=== PATIENT | male | born 1980 | race Caucasian/White ===

== ENCOUNTER 2016-10-13 19:15 | Inpatient (IN) | payer OTHER ==
[~2016-10-13] VITALS: Ht 180.3 cm; Wt 113.3 kg
[2016-10-13] MEDS ORDERED: NS 1,000 ML IV SCH (19:20)
[2016-10-13] MEDS ORDERED: D5W/0.45% SODIUM CHLORIDE 1,000 ML IV SCH (19:20)
[2016-10-13] MEDS ORDERED: VALS160T PO (22:56)
[2016-10-13] MEDS ORDERED: AMLO10TA2 PO (22:56)
[2016-10-13 23:09] LABS: BASO % 0.5 % (0.0-1.0); EOS # 0.2 K/mm3 (0.0-0.50); LARGE UNSTAINED CELL # 0.2 K/mm3 (0.0-0.4); LARGE UNSTAINED CELL % 1.8 % (0.0-4.0); LYMPH # 2.2 K/mm3 (1.5-4.5); LYMPH % 21.3 % (24.0-44.0); MEAN CORPUSCULAR HEMOGLOBIN 29.5 pg (27.0-33.0); MEAN CORPUSCULAR VOLUME 86.7 fl (80.0-96.0); MONO # 0.5 K/mm3 (0.0-0.8); NEUTROPHILS # 6.5 K/mm3 (1.8-7.7); NEUTROPHILS % 69.4 % (36.0-66.0); PLATELET COUNT, AUTOMATED 311 k/mm3 (150-450); RED CELL DISTRIBUTION WIDTH 13.8 % (11.5-14.5); WHITE BLOOD COUNT 9.3 K/mm3 (4.0-10.0)
[2016-10-13 23:30] LABS: OSMOLALITY SERUM 309 MOSM/KG (275-295)
[2016-10-13 23:35] LABS: ANION GAP 18 MEQ/L (8-16); BLOOD UREA NITROGEN 14 MG/DL (7-18); CALCIUM LEVEL 9.5 MG/DL (8.5-10.1); CARBON DIOXIDE LEVEL 17 MEQ/L (21-32); CHLORIDE LEVEL 99 MEQ/L (98-107); GLOMERULAR FILTRATION RATE 56.7 (>60); GLUCOSE, FASTING 319 MG/DL (70-105); POTASSIUM SERUM 3.4 MEQ/L (3.5-5.1); SODIUM LEVEL 134 MEQ/L (136-145)
[2016-10-13 23:36] VITALS: BP 130/72
[2016-10-13 23:37] LABS: ALBUMIN 3.7 GM/DL (3.2-5.2); ALBUMIN/GLOBULIN RATIO 0.97 (1.00-1.93); ALKALINE PHOSPHATASE 81 U/L (45-117); ALT/SGPT 81 U/L (12-78); ANION GAP 17 MEQ/L (8-16); AST/SGOT 31 U/L (15-37); BILIRUBIN,DIRECT 0.2 MG/DL (0.0-0.2); BILIRUBIN,TOTAL 0.7 MG/DL (0.2-1.0); BLOOD UREA NITROGEN 14 MG/DL (7-18); CALCIUM LEVEL 9.5 MG/DL (8.5-10.1); CARBON DIOXIDE LEVEL 17 MEQ/L (21-32); CHLORIDE LEVEL 99 MEQ/L (98-107); CREATININE FOR GFR 1.57 MG/DL (0.70-1.30); GLOMERULAR FILTRATION RATE 53.8 (>60); GLUCOSE, FASTING 317 MG/DL (70-105); MAGNESIUM LEVEL 1.9 MG/DL (1.8-2.4); PHOSPHORUS LEVEL 1.8 MG/DL (2.5-4.9); POTASSIUM SERUM 3.5 MEQ/L (3.5-5.1); SODIUM LEVEL 133 MEQ/L (136-145); TOTAL PROTEIN 7.5 GM/DL (6.4-8.2)
[2016-10-13] MEDS ORDERED: HumuLIN R (REGULAR) INSULIN (NovoLIN R) **100U/ML** PER UNIT IV STA (23:40)
[2016-10-13] MEDS ORDERED: POTASSIUM CHLORIDE 10 MEQ SR TABLET PO ONE (23:45)
[2016-10-14] VITALS (12 sets, daily range): BP systolic 95–149; BP diastolic 50–80
[2016-10-14] MEDS ORDERED: INSULIN IV RATE CHANGE DOCUMENTATION ML/HR XX SCH
--- NOTE | 2016-10-14 00:06 | ECGEPIP ---
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
[2016-10-14] MEDS ORDERED: INSULIN HUMAN REGULAR 100 UNITS in NS 99 ML IV SCH ×3 (00:15)
[2016-10-14 00:19] LABS: ABG BASE EXCESS -14.2 (-2.0-2.0); ABG HCO3 10.6 MEQ/L (22.0-26.0); ABG PARTIAL PRESSURE CO2 23.9 mmHg (35.0-45.0); ABG PARTIAL PRESSURE O2 97.2 mmHg (75.0-100.0); ABG STANDARD HCO3 13.9 MEQ/L (22.0-26.0); ABG TOTAL CO2 11.3 MEQ/L (22.0-29.0); ABG pH (ARTERIAL) 7.264 UNITS (7.350-7.450)
--- NOTE | 2016-10-14 00:27 | HPE ---
DATE OF ADMISSION: 10/13/2016 PRIMARY CARE PHYSICIAN: Previously was Millie Garnett currently Ross Kim. HOSPITALIST: Dr. 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 Millie Garnett per the patient with negative renal ultrasound, left femoral fracture secondary to trauma status post marco placement 1997, daily alcohol use with four beers a day, no history of alcohol abuse or addiction, presents as a transfer from [facility] per family request. Patient had been having a 1-2 week history of polyuria, decreased appetite, increased water intake, nausea, vomiting, loss of energy and fatigue, as well as weight loss from 275 pounds, currently at 249 pounds for the past 3 weeks. He also complains of constipation, diffuse abdominal pain with vomiting daily for the past week prompting him to present to the emergency room where he was found to have an A1c of over 9, as well as a glucose level of over 400. Patient was admitted to [facility], placed on intravenous (IV) insulin drip, normal saline. Per family request, patient is transferred to [facility] as prompted by his aunt who is an intensive care unit (ICU) nurse. Patient otherwise denies any fevers, chills, cough, shortness of breath, palpitations, dysuria, urgency, frequency. Hospitalist service was called for direct admission as transfer from [facility] per family's request for treatment of diabetic ketoacidosis. PAST MEDICAL HISTORY: 1. Hypertension at the age of 23. 2. Left femoral trauma at the age of 18 with left marco placement. PAST SURGICAL HISTORY: Age 18 left marco placement for femoral fracture from traumatic injury. SOCIAL HISTORY: Drinks four beers a day, has not had a drink in over 2 weeks. No cigarette use. Works at [employer]. FAMILY HISTORY: Mother alive and well with gallbladder biliary colic. Father with diabetes, alive and well age 59. REVIEW OF SYSTEMS: 12-point systems negative aside from positive findings on history of presenting illness (HPI). HOME MEDICATIONS: - valsartan/hydrochlorothiazide one tablet daily - Norvasc 10 mg daily PHYSICAL EXAMINATION: Vitals: 98.8 temp 100 hr 18 rr bp 130/72 99% O2 room air Generally, awake, alert, oriented times three. Anicteric sclerae. No jaundice. Pupils are equally round and reactive to light and accommodation. Extraocular muscles are intact. Normocephalic, atraumatic. Dry mucous membranes. No cervical lymphadenopathy, thyromegaly or jugular venous distention. Lungs are clear to auscultation. No wheezing, rales or rhonchi. Heart: S1, S2, sinus rhythm. No murmurs, rubs or gallops. Abdomen is obese, doughy, soft. Bilateral lower quadrant tenderness. No rebound, guading. Positive bowel sounds times four quadrants. Extremities: No cyanosis, clubbing or any pitting edema. Skin warm, dry, well perfused, pink in color. LABORATORY DATA: wbc 9.3 hgb 16.3 hct 48 plt 311 sodium 134 k 3.4 chloride 99 bicarb 17 bun 14 creatinine 1.5 glucose 319 ca 9.5 A1c 10.2 T.Bili 0.7 D. Bili 0.2 AST 31 ALT 81 Alk phos 81 Total protein 7.5 albumin 3.7 lipase 173 Beta hydroxy butyrate >46 IMAGING STUDIES: Chest x-ray, EKG are pending. ASSESSMENT AND PLAN: This is a 35-year-old male with history of hypertension since the age of 23, traumatic injury to the left femur with marco placement at the age of 18 or 19, presents to the emergency room with 2-week history of nausea, vomiting, decreased intake, fatigue, loss of energy, weight loss from 275 pounds to 249 pounds, polyuria with decrease in appetite, increase in water intake and abdominal discomfort, was admitted to [facility] for diabetic ketoacidosis and transferred to [facility] per family's request, specifically intensive care unit (ICU) nurse, aunt, who requested transfer to [facility]. Patient will be admitted as an inpatient for two midnights, assigned to Dr. Chaz Garces, hospitalist attending at 7 a.m. on 10/14/2016 for the following issues: 1. Diabetic ketoacidosis. Patient will be kept in the ICU, await basic metabolic panel (BMP) results and decide on insulin drip versus subcutaneous insulin with every 1 hour to 2 hour fingersticks for adjustments of his regimen. Check A1c. Check for signs of infection. No signs of cellulitis. Denies any dysuria, urgency, frequency. Obtain a chest x-ray and an EKG. Obtain liver function tests and complete blood count (CBC). Address insulin according to basic metabolic panel and anion gap results. Keep on a consistent carbohydrate diet. Intravenous fluids. Diabetic teaching and foaming machine operator consult in the morning. Patient will be placed on low-dose aspirin 81 mg daily, as well as referral to contract design agent as outpatient to check for baseline retinopathy. Primary care physician needs to examine the patient for monofilament testing to rule out peripheral neuropathy. 2. Chronic back pain. Obtain x-rays of the thoracic, lumbar spine once stabilized. As needed Percocet and morphine, heating pad, and bowel regimen. 3. Chronic constipation. Bowel regimen, check thyroid-stimulating hormone (TSH ) and calcium level. Encourage early ambulation. 4. Hypertension since the age of 23. Secondary hypertension workup has been done by his previous primary caregiver, Dr. Millie Garnett. Obtain records from Dr. Garnett's office. Continue on Norvasc and home medications for better blood pressure control. Monitor patient's creatinine if restarted back on angiotensin-converting enzyme (YANI) inhibitor. 5. Social alcohol use. Admits to drinking four beers a day, but has not had a drink in over 2 weeks. Monitor for withdrawal symptoms. 6. Deep venous thrombosis (DVT) prophylaxis with subcutaneous Lovenox. Patient will be assigned to Dr. Chaz Garces at 7 a.m. on 10/14/2016. [id number]
[2016-10-14] MEDS: INSULIN IV RATE CHANGE DOCUMENTATION ML/HR XX SCH ×4 (00:35→07:08)
[2016-10-14 01:42] LABS: CALCIUM LEVEL 9.2 MG/DL (8.5-10.1); CREATININE FOR GFR 1.53 MG/DL (0.70-1.30); GLOMERULAR FILTRATION RATE 55.4 (>60); POTASSIUM SERUM 2.8 MEQ/L (3.5-5.1)
[2016-10-14] MEDS ORDERED: MAG SULF 1GM/100ML (MAG RUN) 1 GM in APPROPRIATE DILUENT 1 EA IV ONE (02:30)
[2016-10-14] MEDS: POTASSIUM CHLORIDE 10 MEQ SR TABLET PO SCH ×2 (02:33→04:16)
[2016-10-14] MEDS: KCL 40MEQ in NS 1000ML 1,000 ML IV SCH ×2 (02:34→07:30)
[2016-10-14 03:54] LABS: CALCIUM LEVEL 8.7 MG/DL (8.5-10.1); CREATININE FOR GFR 1.52 MG/DL (0.70-1.30); GLOMERULAR FILTRATION RATE 55.8 (>60); POTASSIUM SERUM 3.7 MEQ/L (3.5-5.1)
[2016-10-14 05:32] LABS: BASO % 0.3 % (0.0-1.0); EOS # 0.1 K/mm3 (0.0-0.50); EOS % 1.3 % (0.0-3.0); LARGE UNSTAINED CELL # 0.2 K/mm3 (0.0-0.4); LARGE UNSTAINED CELL % 1.8 % (0.0-4.0); LYMPH # 1.5 K/mm3 (1.5-4.5); LYMPH % 17.5 % (24.0-44.0); MEAN CORPUSCULAR HEMOGLOBIN 29.8 pg (27.0-33.0); MEAN CORPUSCULAR HGB CONC 35.1 g/dl (32.0-36.5); MEAN CORPUSCULAR VOLUME 84.9 fl (80.0-96.0); MONO # 0.4 K/mm3 (0.0-0.8); MONO % 4.7 % (0.0-5.0); NEUTROPHILS # 6.5 K/mm3 (1.8-7.7); NEUTROPHILS % 74.4 % (36.0-66.0); PLATELET COUNT, AUTOMATED 298 k/mm3 (150-450); RED CELL DISTRIBUTION WIDTH 13.3 % (11.5-14.5); WHITE BLOOD COUNT 8.7 K/mm3 (4.0-10.0)
[2016-10-14 06:00] LABS: CALCIUM LEVEL 8.4 MG/DL (8.5-10.1); CREATININE FOR GFR 1.52 MG/DL (0.70-1.30); GLOMERULAR FILTRATION RATE 55.8 (>60); POTASSIUM SERUM 4.1 MEQ/L (3.5-5.1)
[2016-10-14] MEDS ORDERED: GLUCOSE 4 GM CHEW TABLET PO PRN (07:30)
[2016-10-14] MEDS ORDERED: GLUCAGON FOR INJ 1 MG VIAL (J1610) SC PRN (07:30)
[2016-10-14] MEDS ORDERED: DEXTROSE 50% 50 ML SYRINGE IV PRN (07:30)
[2016-10-14] MEDS: HumaLOG INSULIN (NovoLOG) PER UNIT SC SCH ×4 (07:30→20:29)
--- NOTE | 2016-10-14 07:38 | IPNPDOC ---
Subjective Date Seen The patient was seen on 10/14/16. Subjective Chief Complaint/HPI The patient is a 35-year-old male admitted with a reason for visit of DKA. General: Reports: Malaise, Denies: ROS Unobtainable, Chills, Night Sweats, Fatigue, Normal Appetite, Other Symptoms Constitutional: Reports: Malaise, Denies: Chills, Fever, Night Sweats, Weakness, Fatigue, Weight Loss, Lethargy , Other Eyes: Denies: Pain, Vision change, Conjunctivae inflammation, Eyelid inflammation, Redness, Other ENT: Denies: Head Aches, Ear Pain, Dysphagia, Sinus Congestion, Post Nasal Drip , Sore Throat, Epistaxis, Other Symptoms Skin: Denies: Rash, Lesions, Jaundice, Bruising, Itching, Dry, Breakdown, Nail Changes, Other Pulmonary: Denies: Dyspnea, Cough, Pleuritic Chest Pain, Other Symptoms Cardiovascular: Denies: Chest Pain, Palpitations, Orthopnea, Paroxysmal Noc. Dyspnea, Edema, Lt Headedness, Other Symptoms Gastrointestinal: Denies: Nausea, Vomiting, Abdominal Pain, Diarrhea, Constipation, Melena, Hematochezia, Other Symptoms Genitourinary: Denies: Dysuria, Frequency, Incontinence, Hematuria, Retention, Other Symptoms Objective Physical Examination General Exam: Positive: Alert, Cooperative, No Acute Distress Eye Exam: Positive: PERRLA, Conjunctiva & lids normal, EOMI, Negative: Sclera icteric ENT Exam: Positive: Atraumatic Neck Exam: Positive: Supple Chest Exam: Positive: Clear to auscultation, Normal air movement Heart Exam: Positive: Rate Normal, Regular Rhythm Telemetry: Positive: No significant arrhythmia, Sinus Abdomen Exam: Positive: Normal bowel sounds, Soft, Other (obese) Psych Exam: Positive: Oriented x 3 Assessment /Plan Problems (1) DKA (diabetic ketoacidoses) Status: Resolved Discussed With: Patient Problem Specific Plan: Repeat Labs Problem Text: A1c 10.2. transition to sliding scale, dc insulin drip, start diet diabetic teaching continue iv fluids anticipate discharge with metformin vs insulin therapy, lifestyle modifications (2) HTN (hypertension) Status: Chronic Discussed With: Patient Problem Specific Plan: Monitor Clinically Problem Text: continue norvasc, start acei (3) Dyslipidemia Status: Acute Discussed With: Patient Problem Text: newly diagnosed, start statin therapy Plan/VTE VTE Prophylaxis Ordered?: Yes Plan IVF: Continue Diet: Continue Current Diagnostics: Repeat Labs in AM Anticipated Discharge: Home VS, I&O, 24H, [facility] Vital Signs/I&O Vital Signs Date Time Temp Pulse Resp B/P (MAP) Pulse Ox O2 Delivery O2 Flow Rate FiO2 10/14/16 05:25 86 113/65 (81) 98 10/14/16 04:00 97.8 20 I&O- Last 24 Hours up to 6 AM 10/14/16 05:59 Intake Total 640 ml Output Total 500 ml Balance 140 ml Laboratory Data 24H LABS Laboratory Tests 2 10/13/16 22:54: White Blood Count 9.3, Red Blood Count 5.54, Hemoglobin 16.3, Hematocrit 48.0, Mean Corpuscular Volume 86.7, Mean Corpuscular Hemoglobin 29.5, Mean Corpuscular Hemoglobin Concent 34.0, Red Cell Distribution Width 13.8, Platelet Count 311, Neutrophils (%) (Auto) 69.4H, Lymphocytes (%) (Auto) 21.3L, Monocytes (%) (Auto) 5.0, Eosinophils (%) (Auto) 2.0, Basophils (%) (Auto) 0.5, Neutrophils # (Auto) 6.5, Lymphocytes # (Auto) 2.2, Monocytes # (Auto) 0.5, Eosinophils # (Auto) 0.2, Basophils # (Auto) 0.0, Large Unclassified Cells % 1.8 , Large Unclassified Cells # 0.2, Anion Gap 18H, Glomerular Filtration Rate 56.7L, Osmolality 309H, Blood Urea Nitrogen 14, Creatinine 1.50H, Sodium Level 134L, Potassium Level 3.4L, Chloride Level 99, Carbon Dioxide Level 17L, Calcium Level 9.5, Total Creatine Kinase 41, Phosphorus Level 1.8L, Aspartate Amino Transf (AST/SGOT) 31, Alanine Aminotransferase (ALT/SGPT) 81H, Alkaline Phosphatase 81, Total Bilirubin 0.7, Direct Bilirubin 0.2, Total Protein 7.5, Albumin 3.7, Magnesium Level 1.9, Creatine Kinase MB 1.5, Creatine Kinase MB Relative Index 3.65, Troponin I < 0.02, Albumin/Globulin Ratio 0.97L, Lipase 173 , B-Hydroxybutyrate > 46.00H 10/13/16 22:55: Estimated Mean Plasma Glucose 246H, Hemoglobin A1c 10.2H 10/14/16 00:01: Blood Gas Bicarbonate Standard 13.9L, Arterial Blood pH 7.264L, Arterial Blood Partial Pressure CO2 23.9L, Arterial Blood Partial Pressure O2 97.2, Arterial Blood Total CO2 11.3L, Arterial Blood HCO3 10.6L, Arterial Blood Base Excess - 14.2L, Arterial Blood Oxygen Saturation 97.5 10/14/16 00:30: Bedside Glucose (Misc Panel) 332H 10/14/16 00:55: Urine Appearance CLEAR, Urine Color YELLOW, Urine pH 5.0, Urine Specific [place] 1.021, Urine Protein 1+H, Urine Glucose (UA) 3+H, Urine Ketones 2+H, Urine Urobilinogen 0.2, Urine Bilirubin NEGATIVE, Urine Leukocyte Esterase NEGATIVE, Urine Blood 1+H, Urine Nitrite NEGATIVE, Urine WBC (Auto) 1, Urine RBC (Auto) 1, Urine Hyaline Casts (Auto) 0, Urine Bacteria (Auto) NEGATIVE, Urine Squamous Epithelial Cells 0, Urine Mucus (Auto) SMALL, Urine Sperm (Auto) , Urine Creatinine 67.7, Urine Microalbumin 20.2, Urine Microalbumin/Creatinine Ratio 29.8 10/14/16 01:00: Bedside Glucose (Misc Panel) 314H 10/14/16 01:15: Anion Gap 17H, Glomerular Filtration Rate 55.4L, Blood Urea Nitrogen 13, Creatinine 1.53H, Sodium Level 134L, Potassium Level 2.8*L, Chloride Level 102, Carbon Dioxide Level 15L, Calcium Level 9.2 10/14/16 02:00: Bedside Glucose (Misc Panel) 292H 10/14/16 03:01: Bedside Glucose (Misc Panel) 279H 10/14/16 03:20: Anion Gap 15, Glomerular Filtration Rate 55.8L, Blood Urea Nitrogen 13, Creatinine 1.52H, Sodium Level 135L, Potassium Level 3.7#, Chloride Level 104, Carbon Dioxide Level 16L, Calcium Level 8.7 10/14/16 04:13: Bedside Glucose (Misc Panel) 286H 10/14/16 05:02: Bedside Glucose (Misc Panel) 327H 10/14/16 05:22: White Blood Count 8.7, Red Blood Count 5.10, Hemoglobin 15.2, Hematocrit 43.3, Mean Corpuscular Volume 84.9, Mean Corpuscular Hemoglobin 29.8, Mean Corpuscular Hemoglobin Concent 35.1, Red Cell Distribution Width 13.3, Platelet Count 298, Neutrophils (%) (Auto) 74.4H, Lymphocytes (%) (Auto) 17.5L, Monocytes (%) (Auto) 4.7, Eosinophils (%) (Auto) 1.3, Basophils (%) (Auto) 0.3, Neutrophils # (Auto) 6.5, Lymphocytes # (Auto) 1.5, Monocytes # (Auto) 0.4, Eosinophils # (Auto) 0.1, Basophils # (Auto) 0.0, Large Unclassified Cells % 1.8 , Large Unclassified Cells # 0.2, Anion Gap 14, Glomerular Filtration Rate 55.8L , Calcium Level 8.4L, Triglycerides Level 384H, LDL Cholesterol 212.2H, Total Cholesterol 326H, Non-HDL Cholesterol (LDL + VLDL) 289, Total HDL Cholesterol 37L, Cholesterol/HDL Ratio 8.810H 10/14/16 06:04: Bedside Glucose (Misc Panel) 287H 10/14/16 06:58: Bedside Glucose (Misc Panel) 289H CBC/BMP Laboratory Tests 10/13/16 22:54 Red Blood Count 5.54, Mean Corpuscular Volume 86.7, Mean Corpuscular Hemoglobin 29.5, Mean Corpuscular Hemoglobin Concent 34.0, Red Cell Distribution Width 13.8 , Neutrophils (%) (Auto) 69.4 H, Lymphocytes (%) (Auto) 21.3 L, Monocytes (%) ( Auto) 5.0, Eosinophils (%) (Auto) 2.0, Basophils (%) (Auto) 0.5, Neutrophils # ( Auto) 6.5, Lymphocytes # (Auto) 2.2, Monocytes # (Auto) 0.5, Eosinophils # (Auto ) 0.2, Basophils # (Auto) 0.0, Calcium Level 9.5, Total Creatine Kinase 41, Phosphorus Level 1.8 L, Aspartate Amino Transf (AST/SGOT) 31, Alanine Aminotransferase (ALT/SGPT) 81 H, Alkaline Phosphatase 81, Total Bilirubin 0.7, Direct Bilirubin 0.2, Total Protein 7.5, Albumin 3.7 10/14/16 01:15 Calcium Level 9.2 10/14/16 03:20 Calcium Level 8.7 10/14/16 05:22 Red Blood Count 5.10, Mean Corpuscular Volume 84.9, Mean Corpuscular Hemoglobin 29.8, Mean Corpuscular Hemoglobin Concent 35.1, Red Cell Distribution Width 13.3 , Neutrophils (%) (Auto) 74.4 H, Lymphocytes (%) (Auto) 17.5 L, Monocytes (%) ( Auto) 4.7, Eosinophils (%) (Auto) 1.3, Basophils (%) (Auto) 0.3, Neutrophils # ( Auto) 6.5, Lymphocytes # (Auto) 1.5, Monocytes # (Auto) 0.4, Eosinophils # (Auto ) 0.1, Basophils # (Auto) 0.0 Microbiology Microbiology 10/14/16 Urine Culture, Received Pending BASIA CISSE MD Oct 14, 2016 07:37
--- NOTE | 2016-10-14 07:44 | REP ---
Portable chest, 11:04 p.m., the patient sitting, single AP view: There are no comparisons. The lung wilson are clear. The cardiac size is normal. The gillian, mediastinum, and bony thorax are unremarkable. Impression: Negative portable chest. Signed by Jesus Fortune MD 10/14/2016 07:36 A
[2016-10-14 07:55] LABS: CALCIUM LEVEL 8.5 MG/DL (8.5-10.1); CREATININE FOR GFR 1.6 MG/DL (0.70-1.30); GLOMERULAR FILTRATION RATE 52.6 (>60); POTASSIUM SERUM 4.3 MEQ/L (3.5-5.1)
[2016-10-14] MEDS: ENOXAPARIN 40 MG/0.4 ML SYRINGE (J1650) SC SCH (08:16)
[2016-10-14] MEDS ORDERED: amLODIPine 10 MG TAB PO SCH (09:00)
[2016-10-14] MEDS: amLODIPine 5 MG TAB PO SCH (09:00)
[2016-10-14] MEDS ORDERED: VALSARTAN 80 MG TAB (DIOVAN) PO SCH (09:00)
[2016-10-14 10:16] LABS: ANION GAP 13 MEQ/L (8-16); BLOOD UREA NITROGEN 12 MG/DL (7-18); CALCIUM LEVEL 8.7 MG/DL (8.5-10.1); CARBON DIOXIDE LEVEL 17 MEQ/L (21-32); CHLORIDE LEVEL 109 MEQ/L (98-107); CREATININE FOR GFR 1.36 MG/DL (0.70-1.30); GLOMERULAR FILTRATION RATE > 60.0 (>60); GLUCOSE, FASTING 297 MG/DL (70-105); POTASSIUM SERUM 4.6 MEQ/L (3.5-5.1); SODIUM LEVEL 139 MEQ/L (136-145)
[2016-10-14 11:45] LABS: CALCIUM LEVEL 8.9 MG/DL (8.5-10.1); CREATININE FOR GFR 1.47 MG/DL (0.70-1.30); POTASSIUM SERUM 4.3 MEQ/L (3.5-5.1)
[2016-10-14] MEDS: NS 1,000 ML IV SCH ×2 (13:15→21:46)
[2016-10-14 14:00] LABS: ANION GAP 12 MEQ/L (8-16); BLOOD UREA NITROGEN 10 MG/DL (7-18); CALCIUM LEVEL 8.9 MG/DL (8.5-10.1); CARBON DIOXIDE LEVEL 19 MEQ/L (21-32); CHLORIDE LEVEL 107 MEQ/L (98-107); CREATININE FOR GFR 1.34 MG/DL (0.70-1.30); GLOMERULAR FILTRATION RATE > 60.0 (>60); GLUCOSE, FASTING 262 MG/DL (70-105); POTASSIUM SERUM 4.2 MEQ/L (3.5-5.1); SODIUM LEVEL 138 MEQ/L (136-145)
[2016-10-14 19:11] LABS: ANION GAP 10 MEQ/L (8-16); BLOOD UREA NITROGEN 9 MG/DL (7-18); CALCIUM LEVEL 8.7 MG/DL (8.5-10.1); CARBON DIOXIDE LEVEL 21 MEQ/L (21-32); CHLORIDE LEVEL 105 MEQ/L (98-107); CREATININE FOR GFR 1.27 MG/DL (0.70-1.30); GLOMERULAR FILTRATION RATE > 60.0 (>60); GLUCOSE, FASTING 299 MG/DL (70-105); POTASSIUM SERUM 3.8 MEQ/L (3.5-5.1); SODIUM LEVEL 136 MEQ/L (136-145)
[2016-10-14] MEDS ORDERED: LEVEMIR (INSULIN DETEMIR) 1 UNITS/0.01ML SC ONE (20:30)
[2016-10-14] MEDS: ATORVASTATIN 20 MG TAB PO SCH (20:34)
[2016-10-15 03:00] VITALS: BP 130/60
[2016-10-15 07:31] LABS: BASO % 0.5 % (0.0-1.0); EOS # 0.1 K/mm3 (0.0-0.50); EOS % 2.2 % (0.0-3.0); LARGE UNSTAINED CELL # 0.1 K/mm3 (0.0-0.4); LARGE UNSTAINED CELL % 1.8 % (0.0-4.0); LYMPH % 35.9 % (24.0-44.0); MEAN CORPUSCULAR HEMOGLOBIN 29.9 pg (27.0-33.0); MEAN CORPUSCULAR HGB CONC 34.3 g/dl (32.0-36.5); MONO # 0.3 K/mm3 (0.0-0.8); MONO % 6.1 % (0.0-5.0); NEUTROPHILS # 2.9 K/mm3 (1.8-7.7); NEUTROPHILS % 53.5 % (36.0-66.0); PLATELET COUNT, AUTOMATED 225 k/mm3 (150-450); RED CELL DISTRIBUTION WIDTH 13.5 % (11.5-14.5); WHITE BLOOD COUNT 5.3 K/mm3 (4.0-10.0)
[2016-10-15] MEDS: NS 1,000 ML IV SCH ×2 (07:49→17:24)
[2016-10-15 07:57] LABS: ANION GAP 13 MEQ/L (8-16); BLOOD UREA NITROGEN 7 MG/DL (7-18); CALCIUM LEVEL 8.6 MG/DL (8.5-10.1); CARBON DIOXIDE LEVEL 20 MEQ/L (21-32); CHLORIDE LEVEL 105 MEQ/L (98-107); GLOMERULAR FILTRATION RATE > 60.0 (>60); GLUCOSE, FASTING 265 MG/DL (70-105); POTASSIUM SERUM 3.6 MEQ/L (3.5-5.1); SODIUM LEVEL 138 MEQ/L (136-145)
[2016-10-15 08:00] VITALS: BP 135/74
[2016-10-15] MEDS: HumaLOG INSULIN (NovoLOG) PER UNIT SC SCH ×4 (08:04→21:59)
[2016-10-15] MEDS: ENOXAPARIN 40 MG/0.4 ML SYRINGE (J1650) SC SCH (08:05)
[2016-10-15] MEDS: VALSARTAN 80 MG TAB (DIOVAN) PO SCH (08:19)
[2016-10-15] MEDS: amLODIPine 5 MG TAB PO SCH (08:19)
[2016-10-15] MEDS ORDERED: LISINOPRIL 10 MG TAB PO SCH (09:00)
[2016-10-15 16:00] VITALS: BP 149/69
[2016-10-15] MEDS ORDERED: D-CA1KIT XX (17:57)
[2016-10-15] MEDS ORDERED: LEVE1INJ5 SC (17:57)
--- NOTE | 2016-10-15 17:57 | IPNPDOC ---
Text Note Date of Service The patient was seen on 10/15/16. NOTE Subjective: Patient is a 35 year old male with a PMHx of HTN who presented as a transfer from [facility] because of DKA. He was found to have polydipsia, polyuria and generalized weakness. He also noted abdominal pain associated with nausea and vomiting. Patient was admitted to ICU for an insulin drip and then was downgraded to medical surgical floor after he was transitioned to subcutaneous insulin. Patient was seen and examined at the bedside. Currently he denies any nausea or vomiting. He still notes some mild abdominal pain, but has improved. Objective: Vitals (See below) General: Lying in bed, no acute distress, comfortable, AAOx3 HEENT: NC, AT CVS: RRR, +S1S2 Lungs: Fair air entry b/l, -w/r/r Abdomen: Soft, ND, tenderness at epigastrium, +BSx4 Extremities: - Edema, - Calf tenderness Assessment and plan: 1. New Onset DM2; s/p DKA - Clinically has had improvement in his symptoms - Physical currently unrevealing - no history of DM in past; strong family history - A1c of 10.2% - c/w diabetic teaching and insulin teaching - c/w IV fluid hydration - Will c/w ISS, will add Levemir 20 units QHS for better glycemic control - Diet has been fully advanced 2. s/p JENNY - likely 2/2 pre-renal etiology - Cr improving - c/w IV fluid hydration 3. HTN - BP well controlled - c/w Valsartan 4. DLP - c/w Atorvastatin 5. GI prophylaxis - will start Protonix 6. DVT prophylaxis - c/w Lovenox Disposition: - May require insulin upon discharge - Will send glucometer to pharmacy [facility] PATEL, I+O VSEdith, I+O Laboratory Tests 10/14/16 18:46 Calcium Level 8.7 10/15/16 07:20 Calcium Level 8.6, Red Blood Count 4.56, Mean Corpuscular Volume 87.0, Mean Corpuscular Hemoglobin 29.9, Mean Corpuscular Hemoglobin Concent 34.3, Red Cell Distribution Width 13.5, Neutrophils (%) (Auto) 53.5, Lymphocytes (%) (Auto) 35.9, Monocytes (%) (Auto) 6.1 H, Eosinophils (%) (Auto) 2.2, Basophils (%) ( Auto) 0.5, Neutrophils # (Auto) 2.9, Lymphocytes # (Auto) 2.0, Monocytes # (Auto ) 0.3, Eosinophils # (Auto) 0.1, Basophils # (Auto) 0.0 Vital Signs Date Time Temp Pulse Resp B/P (MAP) Pulse Ox O2 Delivery O2 Flow Rate FiO2 10/15/16 16:00 97.8 90 18 149/69 (95) 95 Room Air I&O- Last 24 Hours up to 6 AM 10/15/16 06:00 Intake Total 2675 ml Output Total 1350 ml Balance 1325 ml STEPHANIE CRAFT MD Oct 15, 2016 17:57
[2016-10-15] MEDS: PANTOPRAZOLE 40MG TAB (PROTONIX) PO SCH (18:53)
[2016-10-15 20:00] VITALS: BP 128/70
[2016-10-15] MEDS ORDERED: LEVEMIR (INSULIN DETEMIR) 1 UNITS/0.01ML SC SCH (21:00)
[2016-10-15] MEDS: ATORVASTATIN 20 MG TAB PO SCH (21:59)
[2016-10-16] VITALS: BP 127/62
[2016-10-16] MEDS: NS 1,000 ML IV SCH (05:15)
[2016-10-16 07:12] LABS: BASO % 0.6 % (0.0-1.0); EOS # 0.1 K/mm3 (0.0-0.50); EOS % 2.5 % (0.0-3.0); LARGE UNSTAINED CELL # 0.1 K/mm3 (0.0-0.4); LYMPH # 2.2 K/mm3 (1.5-4.5); LYMPH % 41.1 % (24.0-44.0); MEAN CORPUSCULAR HEMOGLOBIN 29.9 pg (27.0-33.0); MEAN CORPUSCULAR HGB CONC 35.2 g/dl (32.0-36.5); MEAN CORPUSCULAR VOLUME 84.8 fl (80.0-96.0); MONO # 0.2 K/mm3 (0.0-0.8); MONO % 4.6 % (0.0-5.0); NEUTROPHILS # 2.5 K/mm3 (1.8-7.7); NEUTROPHILS % 49.1 % (36.0-66.0); PLATELET COUNT, AUTOMATED 197 k/mm3 (150-450); RED CELL DISTRIBUTION WIDTH 13.2 % (11.5-14.5); WHITE BLOOD COUNT 5.1 K/mm3 (4.0-10.0)
[2016-10-16 07:34] LABS: ANION GAP 13 MEQ/L (8-16); BLOOD UREA NITROGEN 7 MG/DL (7-18); CALCIUM LEVEL 8.7 MG/DL (8.5-10.1); CARBON DIOXIDE LEVEL 23 MEQ/L (21-32); CHLORIDE LEVEL 104 MEQ/L (98-107); CREATININE FOR GFR 0.97 MG/DL (0.70-1.30); GLOMERULAR FILTRATION RATE > 60.0 (>60); GLUCOSE, FASTING 249 MG/DL (70-105); POTASSIUM SERUM 3.4 MEQ/L (3.5-5.1); SODIUM LEVEL 140 MEQ/L (136-145)
[2016-10-16] MEDS ORDERED: POTASSIUM CHLORIDE 10 MEQ SR TABLET PO ONE (07:45)
[2016-10-16 08:00] VITALS: BP 139/77
[2016-10-16] MEDS: HumaLOG INSULIN (NovoLOG) PER UNIT SC SCH ×2 (08:02→13:28)
[2016-10-16] MEDS: ENOXAPARIN 40 MG/0.4 ML SYRINGE (J1650) SC SCH (08:03)
[2016-10-16 08:04] VITALS: BP 127/62
[2016-10-16] MEDS: amLODIPine 5 MG TAB PO SCH (08:04)
[2016-10-16] MEDS: PANTOPRAZOLE 40MG TAB (PROTONIX) PO SCH (08:05)
[2016-10-16] MEDS: VALSARTAN 80 MG TAB (DIOVAN) PO SCH (08:05)
[2016-10-16] MEDS ORDERED: METF850T4 PO (10:36)
[2016-10-16] MEDS ORDERED: AMLO5TAB2 PO (10:36)
[2016-10-16] MEDS ORDERED: VALS1TAB47 PO (10:36)
[2016-10-16] MEDS ORDERED: ATOR1TAB21 PO (10:36)
--- NOTE | 2016-10-16 18:11 | DSES ---
DATE OF ADMISSION: 10/13/2016 DATE OF DISCHARGE: 10/16/2016 ATTENDING PHYSICIAN: Dr. Omar Goode, Dr. Chaz Garces PRIMARY CARE PHYSICIAN: Dr. Apple Briggs CONSULTED PHYSICIANS: None. REFERRING PHYSICIANS: None. CONDITION ON DISCHARGE: Stable. FINAL DIAGNOSIS: Diabetic ketoacidosis secondary to new-onset diabetes mellitus, type 2. PROCEDURES: None. HISTORY OF PRESENT ILLNESS: Patient is a 35-year-old male with a past medical history of hypertension, who presented as a transfer from [facility] because of diabetic ketoacidosis (DKA). He was found to have polydipsia, polyuria, and generalized weakness. He was noted to have abdominal pain associated with nausea and vomiting. Patient was admitted to intensive care unit (ICU) for insulin drip and then was downgraded to medical/surgical floor after he was transitioned to subcutaneous insulin. HOSPITAL COURSE: 1. New-onset diabetes mellitus, type 2, status post DKA. Clinically has improvement in his symptoms. Physical was currently unrevealing. No history of diabetes mellitus in the past. Strong family history was noted. A1c of 10.2. Continue with diabetic teaching and insulin teaching. Continue with intravenous (IV) fluid hydration. Patient was put on insulin sliding scale, and Levemir 20 units subcutaneous at bedtime was added for better glycemic control. Diet has been fully advanced to consistent-carbohydrate diet. Diabetic teaching has been completed upon discharge. Patient was transitioned to metformin to be taken three times a day as well as long-acting insulin, Levemir 20 units to be taken subcutaneously in the evening. Patient as advised how to record his glucose levels and how to check his levels. Patient was also advised about the symptoms of hypoglycemia and what to look out for. 2. Status post acute kidney injury, likely secondary to prerenal etiology. Creatinine has continued to improve. He has been put on IV fluid hydration throughout the hospital course. 3. Hypertension. Blood pressure is well controlled. Continue with losartan and amlodipine. 4. Dyslipidemia. Continue with atorvastatin. 5. Gastrointestinal (GI) prophylaxis. Continue with Protonix. 6. Deep vein thrombosis (DVT) prophylaxis. Continue with Lovenox. DISCHARGE MEDICATIONS: Patient is being discharged home with the following medication list: - amlodipine 5 mg by mouth daily - atorvastatin 20 mg by mouth at bedtime - Levemir 20 units subcutaneous at bedtime - metformin 850 mg by mouth three times a day - valsartan 160 mg by mouth daily STOPPED MEDICATIONS: Include: - amlodipine 10 mg by mouth daily - valsartan/hydrochlorothiazide 160/12.5 mg by mouth daily DISCHARGE INSTRUCTIONS: Patient has been advised to followup with his primary care provider in the [facility] [place] within the next 7 days. He has been advised to remain compliant with treatment plan and medications and return to the emergency room if he experiences any problems. TIME SPENT ON DISCHARGE: Greater than 35 minutes.
== END 2016-10-16 14:00 | disposition home or self-care (01) | DRG 638 ==
LOC: M ICU 22:25 → M PED 10-14 21:50
PROVIDERS: ADMIT General Practice; ATTEND Internal Medicine
DX: E13.10 Other specified diabetes mellitus with ketoacidosis without coma (principal); N17.9 Acute kidney failure, unspecified; I10 Essential (primary) hypertension; E78.5 Hyperlipidemia, unspecified; Z79.899 Other long term (current) drug therapy; M54.5 Low back pain; K59.00 Constipation, unspecified

== ENCOUNTER → 2019-05-27 | Outpatient (REF) | payer OTHER ==
[~2019-05-27] MED LIST: AMLO10TA5 PO; AMLO5TAB6 PO; ATOR1TAB21 PO; D-CA1KIT XX; LEVE1INJ5 SC; METF850T4 PO; VALS160T2 PO; VALS1TAB67 PO
[2019-05-27 17:46] LABS: CREATININE, URINE 84.2 MG/DL; MALB URINE SIEMENS 11.8 MG/L
== END ==
LOC: M LAB REF 16:42
PROVIDERS: ATTEND Nurse Practitioner Family
DX: E11.65 Type 2 diabetes mellitus with hyperglycemia (principal)